=== PATIENT | female | born 1995 | race Caucasian/White ===

== ENCOUNTER 2017-03-10 12:54 | Emergency (ER) | payer OTHER ==
[2017-03-10] MEDS: ACETAMINOPHEN 325 MG TAB PO (14:54)
[2017-03-10] MEDS: ONDANSETRON (ODT) 4 MG TAB ODT (14:54)
[2017-03-10] MEDS: KETOROLAC 60 MG INJ IM (14:55)
== END 2017-03-10 17:01 | disposition home or self-care (01) ==
LOC: FTE 12:54
DX: R50.9 Fever, unspecified (principal); R05 Cough; R51 Headache; J45.909 Unspecified asthma, uncomplicated; R11.0 Nausea
CPT/HCPCS: 71010; 87400; 96372; 99284-25